=== PATIENT | male | born 1995 | race Caucasian/White ===

== ENCOUNTER 2019-09-09 06:45 | Emergency (ER) | payer OTHER ==
[~2019-09-09] VITALS: Ht 180.3 cm; Wt 89.8 kg
[2019-09-09 06:45] VITALS: BP 152/81
--- NOTE | 2019-09-09 06:45 | NUR ---
PT BIB [facility], PREBOOK. TAKEN TO CHAIR C
--- NOTE | 2019-09-09 06:52 | NUR ---
Dr. Haines examining patient.
[2019-09-09 06:53] VITALS: BP 152/81
--- NOTE | 2019-09-09 06:53 | NUR ---
PATIENT BIB [facility] POLICE DEPT. PATIENT EXAMINED BY DR. LEON. PATIENT MEDICALLY CLEARED AND RELEASED IN CUSTODY IN STABLE CONDITION. ORIGINAL PRE-BOOK FORM GIVEN TO OFFICER Brigid PHILIP # [id number]
== END 2019-09-09 06:53 ==
LOC: MED 06:45
DX: Z02.89 Encounter for other administrative examinations (principal); Z04.1 Encounter for examination and observation following transport accident
CPT/HCPCS: 99283